=== PATIENT | male | born 1980 ===

== ENCOUNTER 2017-01-29 01:15 | Emergency (ER) | payer OTHER ==
[~2017-01-29] VITALS: Ht 177.8 cm; Wt 97.0 kg
[2017-01-29 01:19] VITALS: TEMP 36.7; Ht 177.8 cm; Wt 97.0 kg
[2017-01-29] MEDS ORDERED: ALUMINUM/MAGNESIUM SUSP 30 ML UDC PO STA (01:49)
[2017-01-29] MEDS ORDERED: KETOROLAC TROMETHAMINE 30 MG/ML VIAL IV STA (01:49)
[2017-01-29 02:06] LABS: HEMATOCRIT 40.3 % (42-52); MEAN CELL VOLUME 87.8 fL (80-100); MEAN CORPUSCULAR HEMOGLOBIN 30.1 pg (25-34); MEAN CORPUSCULAR HGB CONC 34.2 g/dl (32-36); MEAN PLATELET VOLUME 9.3 fL (7.4-10.4); PLATELET COUNT 246 K/uL (130-400); RED BLOOD COUNT 4.59 M/uL (4.7-6.1); WHITE BLOOD COUNT 6.82 K/uL (4.8-10.8)
[2017-01-29 02:18] LABS: PROTHROMBIN TIME (PATIENT) 10.8 SECONDS (9.0-12.0)
[2017-01-29 02:25] LABS: ALT/SGPT 30 U/L (12-78); AST/SGOT 19 U/L (15-37); BLOOD UREA NITROGEN 18 mg/dl (7-18); BUN/CREATININE RATIO 14.4 (10-20); CALCIUM 8.9 mg/dl (8.5-10.1); CARBON DIOXIDE 25 mmol/L (21-32); CHLORIDE 102 mmol/L (98-107); CREATININE 1.25 mg/dl (0.60-1.40); GLUCOSE 99 mg/dl (70-99); POTASSIUM 3.6 mmol/L (3.5-5.1); SODIUM 137 mmol/L (136-145)
[2017-01-29 02:31] LABS: ALKALINE PHOSPHATASE 56 U/L (45-117)
[2017-01-29 02:35] LABS: BASO ABS # 0.06 K/uL (0-0.2); BASOPHIL % 0.9 % (0-2); COMPLETE YES; EOSINOPHIL % 3.5 %; LYMPHOCYTE % 33.7 %; NEUTROPHILS % 32.7 %; VARIANT LYM ABS # 1.39 K/uL; VARIANT LYMPHOCYTE % 20.4 %
--- NOTE | 2017-01-29 03:33 | EMERGENCY ROOM VISIT NOTE ---
History Report prepared by Gustabo: Jie Fang Under the Supervision of: Dr. Columba Salazar D.O. First contact with patient: 01:24 Chief Complaint: CHEST PAIN Stated Complaint: PAIN IN CHEST, PINS AND NEEDLES PAIN IN LEFT ARM History of Present Illness The patient is a 36 year old male who presents to the Emergency Room with complaints of constant left chest pain starting a couple days ago. He thought the pain might be muscular and would resolve, but it persists. Tonight he went to bed and felt pins and needles in his left arm. He and his were concerned and decided to come to the ED. He has had this pain in the past, but it has not been this severe. He notices that it occurs with eating sweet or fatty foods like chips or chocolate. It has never gone into his arm before. The pain does not go into his back or neck. It improves when he applies pressure to his chest with his hand. He does not identify anything else that improves or worsens his pain. He has not tried taking any medications. He denies any SOB, nausea, dizziness, lightheadedness, abdominal pain, leg swelling, diarrhea, fever, or chills. He is not on any medications. He denies any tobacco or alcohol use. He notes that he had a lot of chocolate 2 days ago. He denies any change in activity or exercise. He does get heartburn with spicy foods sometimes. He drove to and from [facility] in one day 3-4 weeks ago. He notes that his mother's father had heart problems. Source of History: patient Onset: a couple days ago Position: chest (left) Quality: other (pain) Timing: constant Modifying Factors (Relieving): other (applying pressure) Associated Symptoms: No fevers, No chills, No neck pain, No SOB, No nausea, No abdominal pain, No back pain, No diarrhea Note: Pt reports tingling in left arm. Pt denies lightheadedness, dizziness, leg swelling. Review of Systems See HPI for pertinent positives & negatives. A total of 10 systems reviewed and were otherwise negative. Past Medical & Surgical Medical Problems: (1) No significant past medical history Family History No pertinent family history stated. Social History Smoking Status: Never Smoker Marital Status: Housing Status: lives with family Current/Historical Medications No Active Prescriptions or Reported Meds Allergies Coded Allergies: No Known Allergies (Unverified , 01/29/17) Physical Exam Vital Signs Date Time Temp Pulse Resp B/P (MAP) Pulse Ox O2 Delivery O2 Flow Rate FiO2 01/29/17 03:43 72 20 102/70 98 01/29/17 03:00 65 20 109/76 96 Room Air 01/29/17 01:41 64 01/29/17 01:40 98 Room Air 01/29/17 01:19 36.7 66 18 135/91 97 Room Air Physical Exam GENERAL: alert, well appearing, well nourished, no distress, non-toxic EYE EXAM: normal conjunctiva, PERRL and EOM's grossly intact OROPHARYNX: no exudate, no erythema, lips, buccal mucosa, and tongue normal and mucous membranes are moist NECK: supple, no nuchal rigidity, no adenopathy, non-tender LUNGS: Clear to auscultation. Normal chest wall mechanics HEART: no murmurs, S1 normal and S2 normal, no reproducible chest wall tenderness ABDOMEN: abdomen soft, non-tender, normo-active bowel sounds, no masses, no rebound or guarding. BACK: Back is symmetrical on inspection and there is no deformity, no midline tenderness, no CVA tenderness. SKIN: no rashes and no bruising UPPER EXTREMITIES: upper extremities are grossly normal. Nml pulses and ROM. LOWER EXTREMITIES: No pitting edema. Nml pulses and ROM. NEURO EXAM: Normal sensorium, cranial nerves II-XII grossly intact, normal speech, no gross weakness of arms, no gross weakness of legs. Medical Decision & Procedures ER Provider Diagnostic Interpretation: X-ray: I interpreted the following studies. Chest: A two view study of the chest was reviewed and was negative for cardiomegaly, focal infiltrate, effusion , pulmonary edema, or wide mediastinum. Laboratory Results 01/29/17 01:35 Red Blood Count 4.59, Mean Corpuscular Volume 87.8, Mean Corpuscular Hemoglobin 30.1, Mean Corpuscular Hemoglobin Concent 34.2, Mean Platelet Volume 9.3 01/29/17 01:35 Test 01/29/17 01:35 White Blood Count 6.82 K/uL (4.8-10.8) Red Blood Count 4.59 M/uL (4.7-6.1) Hemoglobin 13.8 g/dL (14.0-18.0) Hematocrit 40.3 % (42-52) Mean Corpuscular Volume 87.8 fL (80-100) Mean Corpuscular Hemoglobin 30.1 pg (25-34) Mean Corpuscular Hemoglobin Concent 34.2 g/dl (32-36) Platelet Count 246 K/uL (130-400) Mean Platelet Volume 9.3 fL (7.4-10.4) RDW Standard Deviation 42.0 fL (36.4-46.3) RDW Coefficient of Variation 13.0 % (11.5-14.5) Neutrophils % (Manual) 32.7 % Lymphocytes % (Manual) 33.7 % Variant Lymphocytes % (manual) 20.4 % Monocytes % (Manual) 8.8 % Eosinophils % (Manual) 3.5 % Basophils % (Manual) 0.9 % (0-2) Neutrophils # (Manual) 2.23 K/uL (1.4-6.5) Total Absolute Neutrophils 2.23 K/uL (1.4-6.5) Lymphocytes # (Manual) 2.30 K/uL (1.2-3.4) Absolute Variant Lymphocytes 1.39 K/uL Total Absolute Lymphocytes 3.69 K/uL (1.2-3.4) Monocytes # (Manual) 0.60 K/uL (0.11-0.59) Eosinophils # (Manual) 0.24 K/uL (0-0.5) Basophils # (Manual) 0.06 K/uL (0-0.2) Red Blood Cell Morphology Unremarkable Prothrombin Time 10.8 SECONDS (9.0-12.0) Prothromb Time International Ratio 1.0 (0.9-1.1) Anion Gap 10.0 mmol/L (3-11) Est Creatinine Clear Calc Drug Dose 96.4 ml/min Estimated GFR () 85.9 Estimated GFR (Non- 74.1 BUN/Creatinine Ratio 14.4 (10-20) Calcium Level 8.9 mg/dl (8.5-10.1) Magnesium Level 2.0 mg/dl (1.8-2.4) Total Bilirubin 0.3 mg/dl (0.2-1) Aspartate Amino Transf (AST/SGOT) 19 U/L (15-37) Alanine Aminotransferase (ALT/SGPT) 30 U/L (12-78) Alkaline Phosphatase 56 U/L (45-117) Troponin I < 0.015 ng/ml (0-0.045) Pro-B-Type Natriuretic Peptide 7 pg/ml (0-450) Total Protein 8.4 gm/dl (6.4-8.2) Albumin 4.3 gm/dl (3.4-5.0) Globulin 4.1 gm/dl (2.5-4.0) Albumin/Globulin Ratio 1.0 (0.9-2) Lipase 234 U/L (73-393) Laboratory results per my review. Medications Administered Medications (Trade) Dose Ordered Sig/Melvi Route Start Time Stop Time Status Last Admin Dose Admin Ketorolac Tromethamine (Toradol Inj) 30 mg NOW STAT IV 01/29/17 01:49 01/29/17 01:50 DC 01/29/17 01:55 30 MG Al Hydroxide/Mg Hydroxide (Maalox Susp) 30 ml NOW STAT PO 01/29/17 01:49 01/29/17 01:50 DC 01/29/17 01:54 30 ML ECG Indication: chest pain Rate (beats per minute): 60 Rhythm: sinus rhythm Findings: no acute ischemic change, no ectopy, other (lot of baseline artifact , poor tracing, normal axis, normal intervals) ED Course 0131: The patient was evaluated in room A11B. A complete history and physical exam was performed. 0149: Maalox Susp 30 ml PO, Toradol Inj 30 mg IV. 0311: Upon reevaluation, the patient is feeling better. I discussed the findings and the treatment plan with the patient. He verbalizes agreement and understanding. He was discharged home. Medical Decision Differential diagnoses includes but is not limited to acute coronary syndrome, myocardial infarction, pericarditis, pulmonary embolus, aortic dissection, pneumonia, pneumothorax, musculoskeletal, shingles, esophageal. HEART score 0 Low risk Wells and PE can be ruled out using Perc criteria Patient well-appearing here and symptoms seem related to diet which she has noted in the past. Patient concerned that symptoms were persistent of the last several days. Given pain in the left chest, seems less likely related to peptic ulcer disease or biliary colic, however discussed diet with patient at bedside. Labs and imaging reassuring. Doubt ACS, PE, vascular etiology, GI bleed, perf. Patient improved here following Toradol and Maalox. Discussed symptoms to watch and return for, he verbalized understanding was agreeable with plan. Medication Reconcilliation Current Medication List: was personally reviewed by me Blood Pressure Screening Patient's blood pressure: Normal blood pressure Blood pressure disposition: Did not require urgent referral Impression Primary Impression: Left sided chest pain Scribe Attestation The scribe's documentation has been prepared under my direction and personally reviewed by me in its entirety. I confirm that the note above accurately reflects all work, treatment, procedures, and medical decision making performed by me. Departure Information Dispostion Home / Self-Care Prescriptions No Active Prescriptions or Reported Meds Referrals [facility] (PCP) Patient Instructions My [facility] Additional Instructions Please continue to monitor your diet as you have noted that this tends to trigger your episodes of chest pain. If you have recurrent episodes of pain, develop vomiting, fevers, trouble breathing, dizziness, the pain is moving into other areas of your body, please return the emergency room.
[2017-01-29 03:43] VITALS: BP 102/70; PULSE 72; O2SAT 98
--- NOTE | 2017-01-29 07:01 | DIAGNOSTIC IMAGING REPORT ---
CHEST ONE VIEW PORTABLE CLINICAL HISTORY: Chest pain. COMPARISON STUDY: No previous studies for comparison. FINDINGS: Lung volumes are normal. Lungs are clear. No pneumothorax or pleural effusion is noted. Pulmonary vascularity is normal. Cardiomediastinal silhouette is normal. IMPRESSION: No acute cardiopulmonary findings. Electronically signed by: Yahir Adams M.D. 01/29/2017 7:00 AM Dictated Date/Time: 01/29/2017 7:00 AM
== END 2017-01-29 03:43 | disposition home or self-care (01) ==
LOC: C.EDB 01:17 → C.EDA 03:43
DX: R07.9 Chest pain, unspecified (principal)

== ENCOUNTER 2017-03-10 01:53 | Emergency (ER) | payer OTHER ==
[~2017-03-10] VITALS: Ht 167.6 cm; Wt 96.0 kg
[2017-03-10 02:01] VITALS: TEMP 37; Ht 167.6 cm; Wt 96.0 kg
[2017-03-10 02:26] LABS: HEMATOCRIT 39.6 % (42-52); HEMOGLOBIN 13.7 g/dL (14.0-18.0); MEAN CELL VOLUME 88.6 fL (80-100); MEAN CORPUSCULAR HEMOGLOBIN 30.6 pg (25-34); MEAN CORPUSCULAR HGB CONC 34.6 g/dl (32-36); MEAN PLATELET VOLUME 8.9 fL (7.4-10.4); PLATELET COUNT 235 K/uL (130-400); RED CELL DISTRIBUTION WIDTH CV 13.1 % (11.5-14.5); RED CELL DISTRIBUTION WIDTH SD 42.2 fL (36.4-46.3); WHITE BLOOD COUNT 7.06 K/uL (4.8-10.8)
[2017-03-10 02:36] LABS: ALBUMIN 3.9 gm/dl (3.4-5.0); CALCIUM 8.4 mg/dl (8.5-10.1); CREATININE 1.1 mg/dl (0.60-1.40); POTASSIUM 3.7 mmol/L (3.5-5.1)
[2017-03-10 02:40] LABS: CKMB 0.9 ng/ml (0.5-3.6); TOTAL PROTEIN 7.7 gm/dl (6.4-8.2)
--- NOTE | 2017-03-10 04:08 | EMERGENCY ROOM VISIT NOTE ---
History First contact with patient: 01:57 Chief Complaint: CHEST PAIN Stated Complaint: CHEST PAIN Nursing Triage Summary: c/o chest pain x 3 days with "trembling inside" and tingling in hands and feet. pt reports that he has been having these symptoms x 1 year intermittently. History of Present Illness The patient is a 36 year old male who presents to the Emergency Room with complaints of chest pain. The patient states that he has had constant chest pain for several months. The pain is in the left side of his chest. The pain has been constant throughout the day, but he states that when he laid down to sleep tonight he had tingling in his hands and feet, which concerned him. He states that he has had some "trembling" all day. He states that the chest pain feels better when he applies pressure with his hand. 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 He was seen here a few months ago for chest pain and had negative workup. He reports he has also been seen by a doctor in [place] for his chest pain and they were unsure what was wrong with him. He does not smoke. He denies any cardiac history or family history of cardiac disease. He denies any shortness of breath , numbness/weakness, radiation of his pain, nausea or vomiting. Review of Systems A complete 10 point review of systems was reviewed with the patient with pertinent positives and negatives as per history of present illness. All else were negative. Past Medical/Surgical History Medical Problems: (1) No significant past medical history Social History Smoking Status: Never Smoker Marital Status: Housing Status: lives with family Current/Historical Medications No Active Prescriptions or Reported Meds Physical Exam Vital Signs Date Time Temp Pulse Resp B/P (MAP) Pulse Ox O2 Delivery O2 Flow Rate FiO2 03/10/17 04:29 70 18 104/74 97 03/10/17 04:00 66 16 106/75 95 Room Air 03/10/17 02:11 59 03/10/17 02:04 93 Room Air 03/10/17 02:01 37.0 63 20 127/80 96 Room Air Physical Exam VITALS: Vitals are noted on the nurse's note and reviewed by myself. Vital signs stable. GENERAL: This is a 36-year-old male, in no acute distress, nondiaphoretic, well- developed well-nourished. SKIN: Capillary reflex less than 2 seconds. HEENT: PERRLA. EOMI. Mucous membranes moist. HEART: Regular rate and rhythm without murmurs gallops or rubs. LUNGS: Clear to auscultation bilaterally without wheezes, rales or rhonchi. MUSCULOSKELETAL: No reproducible chest pain to palpation. NEURO: Patient was alert and oriented to person place and time. Medical Decision & Procedures ER Provider Diagnostic Interpretation: CHEST X-RAY: No acute cardiopulmonary findings, similar to previous. Laboratory Results 03/10/17 02:02 Red Blood Count 4.47, Mean Corpuscular Volume 88.6, Mean Corpuscular Hemoglobin 30.6, Mean Corpuscular Hemoglobin Concent 34.6, Mean Platelet Volume 8.9 03/10/17 02:02 Test 03/10/17 02:02 White Blood Count 7.06 K/uL (4.8-10.8) Red Blood Count 4.47 M/uL (4.7-6.1) Hemoglobin 13.7 g/dL (14.0-18.0) Hematocrit 39.6 % (42-52) Mean Corpuscular Volume 88.6 fL (80-100) Mean Corpuscular Hemoglobin 30.6 pg (25-34) Mean Corpuscular Hemoglobin Concent 34.6 g/dl (32-36) Platelet Count 235 K/uL (130-400) Mean Platelet Volume 8.9 fL (7.4-10.4) RDW Standard Deviation 42.2 fL (36.4-46.3) RDW Coefficient of Variation 13.1 % (11.5-14.5) Neutrophils % (Manual) 34.3 % Lymphocytes % (Manual) 34.2 % Variant Lymphocytes % (manual) 24.3 % Monocytes % (Manual) 4.5 % Eosinophils % (Manual) 2.7 % Neutrophils # (Manual) 2.42 K/uL (1.4-6.5) Total Absolute Neutrophils 2.42 K/uL (1.4-6.5) Lymphocytes # (Manual) 2.41 K/uL (1.2-3.4) Absolute Variant Lymphocytes 1.72 K/uL Total Absolute Lymphocytes 4.13 K/uL (1.2-3.4) Monocytes # (Manual) 0.32 K/uL (0.11-0.59) Eosinophils # (Manual) 0.19 K/uL (0-0.5) Anion Gap 7.0 mmol/L (3-11) Est Creatinine Clear Calc Drug Dose 101.6 ml/min Estimated GFR () 100.3 Estimated GFR (Non- 86.5 BUN/Creatinine Ratio 15.3 (10-20) Calcium Level 8.4 mg/dl (8.5-10.1) Total Bilirubin 0.2 mg/dl (0.2-1) Aspartate Amino Transf (AST/SGOT) 17 U/L (15-37) Alanine Aminotransferase (ALT/SGPT) 27 U/L (12-78) Alkaline Phosphatase 58 U/L (45-117) Total Creatine Kinase 147 U/L (39-308) Creatine Kinase MB 0.9 ng/ml (0.5-3.6) Creatine Kinase MB Ratio 0.6 (0-3.0) Total Protein 7.7 gm/dl (6.4-8.2) Albumin 3.9 gm/dl (3.4-5.0) Globulin 3.8 gm/dl (2.5-4.0) Albumin/Globulin Ratio 1.0 (0.9-2) ECG Indication: chest pain Rate (beats per minute): 63 Rhythm: normal sinus Findings: no acute ischemic change, no ectopy Change: no significant change Medical Decision Differential diagnosis includes acute coronary syndrome, pulmonary embolism, pneumothorax, pericarditis, myocarditis, endocarditis, anxiety, musculoskeletal pain, GERD, costochondritis, pneumonia, among others. The patient is a 36-year-old male who presents today complaining of left-sided chest pain as well as tingling in his extremities. Labs revealed no leukocytosis. [id number] troponin was found to be 0.00. EKG was unremarkable and unchanged from previous. Chest pain has been ongoing for some time and repeat troponin is not necessary. I feel the patient's symptoms are most likely consistent with anxiety. He will follow-up with S in the morning. The patient's case was reviewed with Dr. Oliveira, ED attending physician, who agreed with my assessment and treatment plan. Based on the patient's presentation and work up, I feel the patient is stable for outpatient treatment. The patient was educated to return to the emergency department for any worsening of their current condition or new/concerning symptoms. He will follow up with [facility]. Medication Reconcilliation Current Medication List: was personally reviewed by me Blood Pressure Screening Patient's blood pressure: Normal blood pressure Impression Primary Impression: Left sided chest pain Departure Information Dispostion Home / Self-Care Condition GOOD Prescriptions No Active Prescriptions or Reported Meds Referrals [facility] (PCP) Patient Instructions My [facility] Additional Instructions You have been treated in the Emergency Department for your Chest Pain. Laboratory results and Imaging Studies have ruled out any cardiac or pulmonary cause of your chest pain. For pain control, you can use the following [id number] medicines (if >12 yo): - Regular strength (325mg/tab) Tylenol (acetaminophen) 2 tabs every 4-6 hours as needed. Do not exceed 12 tablets in a 24 hour period. Avoid taking more than 4 grams (4000 mg) of Tylenol per day. This includes any other sources of acetaminophen you may take on a regular basis. - Regular strength (200 mg/tab) Advil (ibuprofen) 1-2 tabs every 4-6 hours as needed. Do not exceed a dose of 3200 mg per day. You should schedule a follow-up appointment with your Primary Care Provider in 2 -3 days for further evaluation from today's Emergency Department visit. Return to the Emergency Department if your current symptoms worsen despite treatment course outlined above, or if you develop any of the following symptoms : worsening chest pain, associated jaw/arm pain, nausea, dizziness, shortness of breath, bloody cough, or fainting.
[2017-03-10 04:29] VITALS: BP 104/74; PULSE 70; O2SAT 97
--- NOTE | 2017-03-10 06:46 | DIAGNOSTIC IMAGING REPORT ---
CHEST ONE VIEW PORTABLE CLINICAL HISTORY: Atypical chest pain COMPARISON STUDY: 01/29/2017 FINDINGS: The cardiac and mediastinal contours are normal. There is no evidence of focal pulmonary consolidation. There is no evidence of failure. No pleural effusions are visualized.[ IMPRESSION: No active disease in the chest. Electronically signed by: Rico Rodriguez M.D. 03/10/2017 6:45 AM Dictated Date/Time: 03/10/2017 6:45 AM
== END 2017-03-10 04:31 | disposition home or self-care (01) ==
LOC: C.EDB 01:55
DX: R07.9 Chest pain, unspecified (principal)